=== PATIENT | female | born 1950 | race Caucasian/White ===

== ENCOUNTER → 2016-10-18 | Outpatient (CLI) | payer OTHER | LOC: RAD 03:05 | DX: Z12.31 Encounter for screening mammogram for malignant neoplasm of breast (principal) ==

== ENCOUNTER → 2017-11-11 | Outpatient (CLI) | payer OTHER ==
[~2017-11-11] MED LIST: ASPIR 8181 M1 PO; CENTRUM SILVER1 EAC4 PO; OMEPRAZOLE40 MG PO
== END ==
LOC: RAD 11:23
DX: Z12.31 Encounter for screening mammogram for malignant neoplasm of breast (principal)

== ENCOUNTER → 2018-08-20 | Outpatient (CLI) | payer OTHER ==
[~2018-08-20] VITALS: Ht 170.2 cm; Wt 76.2 kg
--- NOTE | ~2018-08-20 | PATH ---
[facility] [address] [place] [address] PATHOLOGY RPT PROCEDURE Name: [place] MARCUM Room #: REG ESTELITA Luevano#: [id number] Admission: 08/20/18 Date of : 52 Discharge: Report #: [id number] Path Case #: [id number] [facility] Accession Number: [id number] . 01 Material submitted: . PART A: POLYP X2 AT TRANSVERSE COLON PART B: POLYP AT RECTUM . 01 Clinical history: . Pre-OP DX: Hx polyps Post-OP DX: Colon polyps . 02 Diagnosis: A. Colonic mucosa "polyp x 2 transverse colon": - Fragments of tubular adenomas. - There is no evidence of high-grade dysplasia or malignancy. . B. Colonic mucosa "polyp at rectum": - Hyperplastic polyp. - There is no evidence of adenomatous change, high-grade dysplasia or malignancy. (SHA:pit 08/21/2018) QTP/08/21/2018 . 02 Electronically signed: . Michael See MD, Pathologist NPI- [id number] . 01 Gross description: . A. Received in formalin labeled "[place] Marcum, polyp x2 at transverse colon," are 2 segments of melendez soft tissue measuring 0.7 x 0.3 x 0.2 cm in aggregate dimensions and ranging from 0.3 to 0.4 cm in maximum dimension. The specimen is submitted entirely in cassette A1. . B. Received in formalin labeled "[place] Marcum, polyp at rectum," is a single segment of melendez soft tissue measuring 0.2 cm in maximum dimension. The specimen is entirely submitted in cassette B1. (TSD; 08/20/2018) TOB/TOB . 02 Pathologist provided ICD-10: D12.3, K62.1 . 02 CPT . 783710, 684112 Specimen Comment: A courtesy copy of this report has been sent to Specimen Comment: [phone], [phone]. [address] [address] PATHOLOGY RPT PROCEDURE Name: [place] MARCUM [place] Room #: REG [facility] Bassem#: [id number] Admission: 08/20/18 Date of : 52 Discharge: Report #: [id number] Path Case #: [id number] Specimen Comment: Report sent to / DR ALMENDAREZ Specimen Comment: A duplicate report has been generated due to demographic updates. Performed at: [address] [facility], [place], [place] [id number] MD Valdemar Funes MD Phone: [phone] Performed at: [address] [facility] [id number] MD Arlette Alejandre MD Phone: [phone]
--- NOTE | ~2018-08-20 | P ---
[facility] [place] [address] PROCEDURE REPORT Name: TRIXIEDIAMONDROGELIO BARTH [id number] Admission: 08/20/18 Attend Phys: Sylvester Duarte Discharge: Date of : 52 Report #: [id number] THIS REPORT FOR: //name// CC: Sylvester Smith DATE OF SERVICE: 08/20/2018 PROCEDURE PERFORMED: Colonoscopy with biopsies. HISTORY OF PRESENT ILLNESS: The patient is a 67-year-old female with a history of colon polyps 5 years ago, here for routine followup. Denies any symptoms. No family history of colon cancer. PROCEDURE: The risks and benefits of the procedure were explained to the patient, those risks including, but not limited to, bleeding, perforation, the risk of sedation. She understood these risks and gave informed consent. Sedation was given using propofol per anesthesia. Next, a digital rectal exam was initially performed, which was normal. Next, using a standard Olympus colonoscope, the scope was placed in the patient's anus and advanced under direct vision to the cecum. The overall prep was excellent. The cecum and ileocecal valve were normal in appearance. The ascending colon was normal. In the transverse colon, two 3-4 mm sessile polyps were noted, both removed with cold forceps, otherwise normal. The descending colon was normal. A few scattered diverticula were noted in the sigmoid colon, no evidence of inflammation, otherwise normal. In the rectum, a 3 mm sessile polyp was noted and removed with cold forceps. On retroflexion, no abnormalities were noted. The scope was then withdrawn and the procedure terminated. The patient tolerated the procedure well. IMPRESSION: 1. Three small colonic polyps. 2. Mild sigmoid diverticulosis. 3. Otherwise, normal colonoscopy. RECOMMENDATIONS: 1. Await biopsy results. 2. If polyps are hyperplastic, repeat colonoscopy in 10 years; if adenomatous polyps, repeat in [address] [address] PROCEDURE REPORT Name: [place]AM[place] MARCUM Room #: REG [facility] Bassem#: [id number] Admission: 08/20/18 Attend Phys: Sylvester Duarte Discharge: Date of : 52 Report #: [id number] Thank you for allowing me to participate in her care. <ELECTRONICALLY SIGNED> By: Sylvester Urbina MD 08/22/18 0832 0849 0026 Sylvester Urbina MD /nt
== END | disposition home or self-care (01) ==
LOC: GI 06:45
DX: Z12.11 Encounter for screening for malignant neoplasm of colon (principal); Z86.010 Personal history of colon polyps; D12.3 Benign neoplasm of transverse colon; K62.1 Rectal polyp; K57.30 Diverticulosis of large intestine without perforation or abscess without bleeding; K21.9 Gastro-esophageal reflux disease without esophagitis; F17.210 Nicotine dependence, cigarettes, uncomplicated; Z85.42 Personal history of malignant neoplasm of other parts of uterus; Z87.442 Personal history of urinary calculi; Z90.710 Acquired absence of both cervix and uterus; Z90.49 Acquired absence of other specified parts of digestive tract; Z88.8 Allergy status to other drugs, medicaments and biological substances; Z79.82 Long term (current) use of aspirin; Z79.899 Other long term (current) drug therapy; Z98.890 Other specified postprocedural states

== ENCOUNTER → 2018-12-17 | Outpatient (CLI) | payer OTHER | LOC: RAD 00:42 | DX: Z12.31 Encounter for screening mammogram for malignant neoplasm of breast (principal) ==

== ENCOUNTER → 2020-03-22 | Outpatient (CLI) | payer OTHER, MEDICARE | LOC: BC 10:19 | PROVIDERS: ATTEND Family Medicine | DX: Z12.31 Encounter for screening mammogram for malignant neoplasm of breast (principal) ==

== ENCOUNTER → 2021-05-01 | Outpatient (CLI) | payer OTHER, MEDICARE | LOC: BC 10:37 | PROVIDERS: ATTEND Family Medicine | DX: Z12.31 Encounter for screening mammogram for malignant neoplasm of breast (principal) ==

== ENCOUNTER → 2021-05-04 | Outpatient (CLI) | payer OTHER, MEDICARE | LOC: BC 12:08 | PROVIDERS: ATTEND Family Medicine | DX: R92.2 Inconclusive mammogram (principal) ==